=== PATIENT | female | born 2000 | race Caucasian/White ===

== ENCOUNTER 2025-07-03 00:55 | Emergency (ER) | payer OTHER, SELFPAY ==
[2025-07-03 01:01] VITALS: BP 113/77
--- NOTE | 2025-07-03 05:02 | ED.GENMED ---
History of Present Illness
General
Chief Complaint: Rectal Bleeding
Source: patient
Exam Limitations: none
Time Seen by Provider: 07/03/25 04:02
Nursing documentation reviewed up to this point in time: agreed with
History of Present Illness
History of Present Illness:
pt is a 25 y/o F with h/o anxiety/depression
5 days of feeling mild upset stomach, 1-2 episodes watery stool
then on 07/02 day she had about 8 episodes watery yellow diarrhea, not foul smelling
after the last one pt had some blood in the toilet, colorin gth ewater a very pale red
no clots
she then saw some blood with wiping
pt has not had any fever, chills, vomiting, abd pain, hematuria, vaginal bleeding
has IUD
no h/o hemorrhoids
mild anal soreness from wiping
no recent travel
no recent abx
Past History
Past History
ED Past Medical History: Psychiatric
ED Past Surgical History: None
Social History
Tobacco: Non-smoker
Alcohol: None
Drug: None
Personal: Single
Living: with family
Review of Systems
Review of Systems
Allergies reviewed?: Yes
All Other Systems: Not applicable
Phy Exam
Physical Exam
Physical Exam:
GENERAL: Alert , in no apparent distress
EYE: pupils equal and reactive
NECK: Supple
ENT: o/p clr, mmm.
CARDIAC: Regular rate and rhythm .
LUNGS: Clear breath sounds bilaterally, no acute respiratory distress, no wheezes/rales/rhonchi
ABDOMEN: Soft, without focal tenderness, no r/g, no cvat, normal bowel sounds
rectal: small external nonbleeidng hemrrohid
trace pink in vault heme pos
NEUROLOGICAL: Alert and oriented, no focal neuro deficits
SKIN: Warm and dry, skin intact.
MUSCULOSKELETAL: No edema, well perfused. neg mahamed's sign
PSYCH: Normal and appropriate interaction.
Course
Orders/Labs/Results
Orders:
Orders
07/03/25 04:52
Stool Culture Urgent
ALEX Source: Feces/Stool
Specimen Description:
07/03/25 04:59
Ova & Parasites Giardia/Crypto AG [Giardia/Cryptosporidium Ag] Urgent
ALEX Source: Feces/Stool
Specimen Description:
Vital Signs
Initial and Last Documented VS:
Initial Vital Signs
Temp Pulse Resp BP Pulse Ox
37.1 C 101 16 113/77 96
07/03/25 01:01 07/03/25 01:01 07/03/25 01:01 07/03/25 01:01 07/03/25 01:01
Last Documented Vital Signs
Temp Pulse Resp BP Pulse Ox
36.5 C 75 16 132/74 96
07/03/25 05:10 07/03/25 05:10 07/03/25 05:10 07/03/25 05:10 07/03/25 05:10
MDM/Problems Addressed
Differential Diagnosis Includes:
colitis, hemorrhoids, infectious diarrhea, IBD
MDM/Problems Addressed:
25 y/o F
loose stools fo ra few days
mild gassiness
today more diarrhea and then painless rectal bleeding
not large volume
no fever/chills
no c diff rf
no h/o IBD
nontender abd
vitals normal
rectal with small internal/external hemrrhoid,
pink in vault, no actibe bleeidng
d/w dr sanchez
requested stool
but givne age and lack of RF, this is liekly hemrrhoidal bleeidng in response to havign diarrhea
recommend outpatietn Gi f/u if this continues
*Pulse Oximetry
SaO2: 96
Oxygen Mode of Delivery: Room air
Patient hypoxic: no (96)
*Critical Care Note
Total Time (30-74mins, 75-104mins- exclusive of procedures): Not Applicable
ED Attending Note
-
Portions of this chart may have been created with voice recognition software.� Occasional wrong word or��sound alike� substitutions may have occurred due to the inherent limitations of voice recognition software.
Discharge Plan
Departure
Patient Disposition: Home (Routine Discharge)
Date of Disposition: 07/03/25
Time of Disposition: 05:15
Patient with high blood pressure during this ER visit?: No
Discharge Problem:
Rectal bleed, Diarrhea
Instructions: Hemorrhoids (DC), Diarrhea in adults - ED (DC)
Referrals:
Jann Dobbs MD [Active, Gastroenterology] - Follow up in 5-7 days
NONE,* [Family Provider, Internal Medicine]
Activity Restrictions/Additional Instructions:
Your rectal bleeding could be from a virus or bacteria causing some diarrhea, as well as it could be a small hemorrhoid. For these problems he should try the BRAT diet, bananas rice applesauce toast, drinking fluids to stay hydrated. You should
use Preparation H suppository once a day for the next 2 or 3 days in a row.
you can use topical creams on the outisde anus region for pain as well
return for: worsening pain, fever, worsening bleeding episodes, black stoole tc
otherwise consider outpatient GI follow up
Interventions
Interventions:
*General Assessment Last Done: 07/03/25 05:59
*Neglect/Abuse Screening Last Done: 07/03/25 05:59
*ED COVID-19 Vaccine History Last Done: 07/03/25 05:59
*ED Influenza Vaccine History Last Done: 07/03/25 05:59
[facility] Risk Assessment Tool Last Done: 07/03/25 06:00
*Risk Screen - Suicide (C-SSRS) Last Done: 07/03/25 01:01
*Nursing Disposition Last Done: 07/03/25 06:00
FQ-Hjpoxv-Lgmwbyassy Assessment Last Done: 07/03/25 04:53
ED- Cardiac Assessment Last Done: 07/03/25 04:53
ED- Pulmonary Assessment Last Done: 07/03/25 04:53
Discharge Date and Time
Discharge Date/Time: 07/03/25 06:01
Print Language: MALTESE
[2025-07-03 05:10] VITALS: BP 132/74
== END 2025-07-03 06:01 | disposition home or self-care (01) ==
LOC: EMR 00:55
PROVIDERS: EMERGENCY PHYSICIAN Emergency Medicine
DX: K62.5 Hemorrhage of anus and rectum (principal); R19.7 Diarrhea, unspecified
CPT/HCPCS: 99282